=== PATIENT | male | born 1970 | race Caucasian/White ===

== ENCOUNTER 2017-07-31 07:48 | Outpatient (CLI) | payer OTHER ==
--- NOTE | 2017-07-31 08:18 | RAD ---
RADIOGRAPH RIGHT HIP 2 VIEWS: HISTORY: A 46-year-old male with right hip pain. FINDINGS: There is no fracture or dislocation. Femoral head contour is smooth and well maintained. No subcapi josse osteophytes or significant acetabular osteophytes. Hip joint space is maintained. IMPRESSION: Normal. POS: [facility]
== END 2017-07-31 07:49 | disposition home or self-care (01) ==
LOC: RAD-FRANK 07:48
PROVIDERS: ATTEND Nurse Practitioner Family
DX: M25.551 Pain in right hip (principal)